=== PATIENT | male | born 1950 | race Caucasian/White ===

== ENCOUNTER 2017-12-03 08:35 | Day surgery (SDC) | payer MEDICARE, BC ==
[~2017-12-03] VITALS: Ht 182.9 cm; Wt 94.5 kg
[2017-12-03] VITALS (8 sets, daily range): BP systolic 145–178; BP diastolic 77–99; PULSE 57–80; TEMP 97.5
[2017-12-03 09:13] LABS: HEMATOCRIT 44.2 % (42.0-52.0); HEMOGLOBIN 15.1 g/dl (13.5-18.0); MEAN CELL VOLUME 89 fl (80.0-100.0); MEAN CORPUSCULAR HEMOGLOBIN 30 pg (27.0-31.0); MEAN CORPUSCULAR HGB CONC 34 g/dl (33.0-37.0); PLATELET COUNT 229 K/mm3 (130-400); RED BLOOD COUNT 4.98 M/mm3 (4.20-5.60); REDCELL DISTRIBUTION WIDTH-CV 12.7 % (11.5-14.5)
[2017-12-03 09:19] LABS: PROTHROMBIN TIME 10.8 SECONDS (9.7-12.8)
[2017-12-03 09:28] LABS: CALCIUM 9.2 mg/dL (8.4-10.2); CREATININE, serum 0.82 mg/dL (0.66-1.25); POTASSIUM 4.2 mmol/L (3.4-5.0)
[2017-12-03] MEDS ORDERED: TYLENOL 325MG325 MG PO (10:06)
[2017-12-03] MEDS ORDERED: LIPITOR20 MG PO (10:07)
[2017-12-03] MEDS ORDERED: ASPIRIN 81M81 MG/TA2 PO (10:07)
[2017-12-03] MEDS ORDERED: ZESTRIL 20MG TA20 MG PO (10:09)
[2017-12-03] MEDS ORDERED: PRILOSEC10 MG PO (10:10)
[2017-12-03] MEDS ORDERED: GLUCOPHAGE500 MG/TAB PO (10:10)
[2017-12-03] MEDS ORDERED: TOPROL XL 25MG25 MG PO (10:11)
== END 2017-12-03 13:45 | disposition home or self-care (01) ==
LOC: COL.CAR 08:35
PROVIDERS: Internal Medicine Cardiovascular Disease
DX: R07.89 Other chest pain (principal); R06.02 Shortness of breath; I08.1 Rheumatic disorders of both mitral and tricuspid valves; I10 Essential (primary) hypertension; E11.9 Type 2 diabetes mellitus without complications; Z79.84 Long term (current) use of oral hypoglycemic drugs; E78.5 Hyperlipidemia, unspecified; Z79.82 Long term (current) use of aspirin; Z83.3 Family history of diabetes mellitus; Z82.49 Family history of ischemic heart disease and other diseases of the circulatory system
CPT/HCPCS: J2250; J3010